=== PATIENT | female | born 1935 | race Caucasian/White ===

== ENCOUNTER → 2017-01-08 | Outpatient (CLI) | payer MEDICARE ==
[~2017-01-08] MED LIST: ASTELIN137 MCG INH; B COMPLEX1 CA1 PO; BENTYL20 MG PO; CALTRATE PLUS T1 TAB PO; CELEBREX PO; CIPRO PO; CRESTOR PO; DIOVAN HCT 80/11 TAB PO; ESTRACE PO; IRON325 ( 651 PO; LIPITOR PO; MIRALAX255 GM PO; NEXIUM PO; NORVASC PO; PREMARIN PO; PREMARIN VAG CR45 GM MC; VALSARTAN-HCTZ1 EACH PO; VITAMIN D; ZANTAC PO; [UNRECOGNIZED DRUG - OTHER]
--- NOTE | ~2017-01-08 | BD1 ---
[facility] A Service of [facility] RADIOLOGY TEXT RESULTS PATIENT: MAYRA RANDHAWA LOCATION: [facility] : 39 UNIT #: [id number] AGE: [address]: Adithya Mohamud MD SEX: F ORDER DR: [id number] [facility] [address] [place], [place] [address] [id number] O MR#: [id number] Acc #: [id number] NAME: MAYRA RANDHAWA. : 1935 SEX: F STUDY DATE/TIME: 01/08/2017 10:39 UNIT: [facility] ROOM: STUDY DESCRIPTION: BD Dexa Bone Dens 1+ Site Attending Physician: Adithya Mohamud M.D. Ordering Physician: Adithya Mohamud M.D. Primary Care Physician: Adithya Mohamud M.D. MEDICAL IMAGING REPORT This report is preliminary unless electronic signature is present EXAM DXA scan 01/08/2017 HISTORY Status post menopause with no hormone replacement therapy. Osteopenia. Hysterectomy at age 40 with removal of 1 ovary. Arthritis. Hypertension with blood pressure medication for 10 years. Smoking history for 10 years. FINDINGS Bone mineral density in the lumbar spine from L1-L4 was 1.029 g/cm2 which is 0.2 standard deviations below the mean when compared to the young adult reference population which is within the range of normal. This is 2.5 standard deviations above the mean when compared to the age-matched population. Compared with 10/26/2014, there has been an increase in bone mineral density in the lumbar spine of 0.8%. Bone mineral density in the left femoral neck was 0.576 g/cm2 which is 2.5 standard deviations below the mean when compared to the young adult reference population which is characteristic of osteoporosis. This is 0.2 standard deviations below the mean when compared to the age-matched population. Compared with 10/26/2014, there has been an increase in bone mineral density in the left hip of 2.6%. IMPRESSION Bone mineral density in the lumbar spine within the range of normal and within the left hip characteristic of osteoporosis. Compared with 10/26/2014, there has been an increase in bone mineral density in the lumbar spine and the left hip. Dictated by... Noel Osman M.D. [facility] A Service of [facility] RADIOLOGY TEXT RESULTS PATIENT: MAYRA RANDHAWA LOCATION: [facility] #: [id number] : 39 UNIT #: [id number] AGE: [address]: Adithya Mohamud MD SEX: F ORDER DR: THIS IS AN ELECTRONICALLY VERIFIED REPORT Noel Osman M.D. at 01/09/2017 8:01 AM MARE/srinivasan TD: 01/08/2017 11:19 JOB #: [id number] MEDICAL IMAGING REPORT Page 1 of 1 COPY
== END | disposition home or self-care (01) ==
LOC: CWCC 10:21
DX: M85.80 Other specified disorders of bone density and structure, unspecified site (principal); Z78.0 Asymptomatic menopausal state; M81.0 Age-related osteoporosis without current pathological fracture
CPT/HCPCS: 77080